=== PATIENT | female | born 1950 ===

== ENCOUNTER 2018-07-24 14:11 | Emergency (ER) | payer OTHER ==
[2018-07-24 14:47] VITALS: O2SAT 98
[2018-07-24] MEDS ORDERED: Sodium Chloride 0.9% 1,000 ML IV ONE (16:45)
[2018-07-24] MEDS ORDERED: Sodium Chloride 0.9% 1,000 ML ONE (16:53)
[2018-07-24 16:56] LABS: BASO % 0.2 % (0.0-2.0); HEMOGLOBIN 15.8 g/dL (11.0-16.0); LYMPH # 0.6 K/uL (1.0-4.3); LYMPH % 4.3 % (20.0-40.0); MEAN CELL VOLUME 96.8 fL (81.0-99.0); MEAN PLATELET VOLUME 9.4 fL (7.2-11.7); MONO # 0.3 K/uL (0.0-0.8); MONO % 2.3 % (0.0-10.0); NEUT # 12.8 K/uL (1.8-7.0); NEUT % 93.2 % (50.0-75.0); PLATELET COUNT 217 K/uL (130-400); RBC 4.95 Mil/uL (3.80-5.20); RED CELL DISTRIBUTION WIDTH 13.8 % (11.5-14.5); WHITE BLOOD COUNT 13.7 K/uL (4.8-10.8)
[2018-07-24 17:05] LABS: SQUAMOUS EPITHIAL 6 /hpf (0-5); URINE BILIRUBIN NEGATIVE (NEGATIVE); URINE BLOOD NEGATIVE (NEGATIVE); URINE CLARITY Hazy (Clear); URINE COLOR Yellow (YELLOW); URINE GLUCOSE (UA) NORMAL (Normal); URINE LEUKOCYTE ESTERASE 2+ Leu/uL (Negative); URINE PROTEIN NEGATIVE (NEGATIVE); URINE UROBILINOGEN NORMAL mg/dL (0.2-1.0)
--- NOTE | 2018-07-24 17:06 | C.PDOC ---
History Of Present Illness Patient is a 68 year old female who presents to the ED for evaluation diffuse abdominal pain for 1 day. Patient notes associated nausea, vomiting x3 since morning, and diarrhea x10. Patient denies any fever, chills, headache, or cons tipation. Patient also says she has had no sick contacts and has not been able to tolerate any PO intake. Time Seen by Provider: 07/24/18 16:25 Chief Complaint (Nursing): Abdominal Pain History Per: Patient History/Exam Limitations: no limitations Onset/Duration Of Symptoms: Hrs (nausea, vomiting, diarrhea), Days (1 day: abdominal pain) Current Symptoms Are (Timing): Still Present Associated Symptoms: Nausea, Vomiting, Diarrhea. denies: Fever, Chills, Constipation Recent travel outside of the [place]: No Additional History Per: Patient Past Medical History Reviewed: Historical Data, Nursing Documentation, Vital Signs Vital Signs: Last Vital Signs Temp 98.8 F 07/24/18 14:44 Pulse 88 07/24/18 14:44 Resp 18 07/24/18 14:44 BP 129/74 07/24/18 14:44 Pulse Ox 98 07/24/18 14:44 - Medical History PMH: HTN Surgical History: Cholecystectomy Family History: States: Unknown Family Hx - Social History Hx Alcohol Use: No Hx Substance Use: No - Immunization History Hx Tetanus Toxoid Vaccination: No Hx Influenza Vaccination: No Hx Pneumococcal Vaccination: No Review Of Systems Constitutional: Negative for: Fever, Chills Cardiovascular: Negative for: Chest Pain Respiratory: Negative for: Shortness of Breath Gastrointestinal: Positive for: Nausea, Vomiting (x3), Abdominal Pain, Diarrhea (x10). Negative for: Constipation Physical Exam - Physical Exam Appears: Non-toxic, In Acute Distress (mild) Skin: Normal Color, Warm, Dry Head: Atraumatic, Normacephalic Eye(s): bilateral: Normal Inspection Oral Mucosa: Moist Neck: Normal ROM, Supple Chest: Symmetrical Cardiovascular: Rhythm Regular Respiratory: Normal Breath Sounds, No Rales, No Rhonchi, No Wheezing Gastrointestinal/Abdominal: Tenderness (mild diffuse) Extremity: Normal ROM Neurological/Psych: Oriented x3 ED Course And Treatment - Laboratory Results Result Diagrams: 07/24/18 16:50 07/24/18 16:50 O2 Sat by Pulse Oximetry: 98 (on RA) Pulse Ox Interpretation: Normal - CT Scan/US CT ABD/PELVIS Other Rad Studies (CT/US): Read By Radiologist, Radiology Report Reviewed CT/US Interpretation: Name:LIZETH CARRILLO Exam Date:Jul 24, 2018 5:38:58 PM EST. Modality Type:CT\SR. Description:CT - ABDOMEN AND PELVIS. Gender:F Laterality:Not applicable. :52 Referring Physician:TRESA WARREN MD EXAM: CT Abdomen with IV contrast. CLINICAL HISTORY: Abd pain. TECHNIQUE: Axial computed tomography images of the abdomen and pelvis with intravenous contrast. 0.00 mGy-cm. CONTRAST: With; 100MLS VISI 320. COMPARISON: None provided. FINDINGS: LUNG BASES: The lung bases appear clear. No pleural effusions are seen. LIVER: Unremarkable. GALLBLADDER AND BILE DUCTS: The gallbladder has been surgically removed. PANCREAS: Unremarkable. SPLEEN: Unremarkable. ADRENAL GLANDS: Unremarkable. KIDNEYS, URETERS, AND BLADDER: The kidneys appear within normal limits. There is no hydronephrosis or hydroureter. No urinary calculi are seen. Minimal cystic changes are seen at the right adnexal region the pelvis. STOMACH AND BOWEL: Small rounded radiopaque density within the distal portion of the stomach is likely represent ingested material. There are fluid-filled mildly distended loops of small bowel extending into the pelvis with partial small bowel obstruction a consideration. APPENDIX: No evidence of acute appendicitis on CT examination. PERITONEUM: No free fluid. No free air. LYMPH NODES: No lymphadenopathy is evident. VASCULATURE: No evidence of abdominal aortic aneurysm. BONES: No aggressive appearing osseous lesion. No acute osseous pathology evident. IMPRESSION: Status post cholecystectomy. Fluid-filled mildly distended loops of small bowel present throughout the abdomen and into the pelvis with partial small bowel obstruction a consideration. Mild cystic changes right adnexal region of the pelvis. Close clinical correlation is advised. . Electronically signed on Jul 24, 2018 6:28:14 PM EST by: Aroldo Yanes M.D., Certified by [facility], Diagnostic Radiology Medical Decision Making Medical Decision Making: Patient is a 68 year old female who presents to the ED complaning of abdominal pain with associated nausea, vomiting and diarrhea. Plan: * Urinalysis * Bloodwork * CAT A/P * Toradol 30 mg IVP * Zofran 4 mg IVP * IV Fluids CT findings reviewed, discussed with patient. Patient states that she feels fine and is asking to go home. Explained that we will consult surgery due to possible small bowel obstruction on CT. Case discussed with surgery resident, will see patient. 2053- Surgery resident saw patient and discussed case with Dr. Thompson. Can d/c with cipro and flagyl. Rx written for cipro/flagyl. Cipro will also cover for UTI. Disposition - Disposition Disposition: HOME/ ROUTINE Disposition Time: 21:07 Condition: STABLE Additional Instructions: LIZETH CARRILLO, thank you for letting us take care of you today. Your provider was Tresa Warren MD and you were treated for STOMACH PAIN. The emergency medical care you received today was directed at your acute symptoms. If you were prescribed any medication, please fill it and take as directed. It may take several days for your symptoms to resolve. Return to the Emergency Department if your symptoms worsen, do not improve, or if you have any other problems. Please contact your doctor or call one of the physicians/clinics you have been referred to that are listed on the Patient Visit Information form that is included in your discharge packet. Bring any paperwork you were given at discharge with you along with any medications you are taking to your follow up visit. Our treatment cannot replace ongoing medical care by a primary care provider outside of the emergency department. Thank you for allowing the [facility] team to be part of your care today. If you had an X-Ray or CT scan: A Radiologist will review the ED reading if any change in treatment is needed we will contact you. If you had a blood, urine, or wound culture: It will take several days for the results, if any change in treatment is needed we will contact you. If you had an STI test: It will take 48 hours for the results. Please call after 1 week if you have not heard back. Prescriptions: RX: Ciprofloxacin [Cipro] 500 mg PO BID #14 tab Metronidazole [Flagyl] 500 mg PO TID #21 tablet Instructions: Urinary Tract Infection, Adult (DC), Colitis (DC) Forms: [email or web address] (German) Print Language: IRISH - Clinical Impression Clinical Impression: Colitis, Urinary tract infection - Scribe Statement The provider has reviewed the documentation as recorded by the Kye Goff All medical record entries made by the Kye were at my direction and personally dictated by me. I have reviewed the chart and agree that the record accurately reflects my personal performance of the history, physical exam, medical decision making, and the department course for this patient. I have also personally directed, reviewed, and agree with the discharge instructions and disposition.
[2018-07-24 17:11] LABS: ALB/GLOB RATIO 1.2 (1.0-2.1); ALBUMIN 4.8 g/dL (3.5-5.0); ALT/SGPT 26 U/L (9-52); AST/SGOT 27 U/L (14-36); BLOOD UREA NITROGEN 21 mg/dL (7-17); CALCIUM 9.2 mg/dl (8.6-10.4); GFR NON-AFRICAN AMERICAN > 60
[2018-07-24] MEDS ORDERED: Iodixanol 320 MG/ML 100 ML BOTTLE IV ONE (17:28)
[2018-07-24 17:43] LABS: BANDS 2 % (0-2); LYMPHOCYTE 3 % (20-40); MONOCYTE 4 % (0-10); NEUTROPHIL 91 % (50-75); PLATELET ESTIMATE NORMAL (NORMAL); TOTAL CELLS COUNTED 100
[2018-07-24 19:19] VITALS: RESP 16
--- NOTE | 2018-07-24 21:10 | CP.PCM.CON ---
History of Present Illness - History of Present Illness History of Present Illness: Surgery Consult Note. Dr Thompson 68yo F with PMHx of HTN here for evaluation of diffuse abdominal pain. Patient states that the pain started this morning, diffuse in nature. States that it was associated with nausea and vomiting x3 episodes, last episode at 1PM today, non- bloodly, non-bilious. Also reports 10x episodes of diarrhea today and states the last episode in ED was loose but more formed compared to earlier today. Patient denies any fevers or chills. States that all of her symptoms have resolved now and would like to be discharged home. Denies any chest pain, SOB. No urinary complaints. Seen ambulating freely without any complaints. PMHx: HTN PSHx: Abdominoplasty, Lap Cholecystectomy Family Hx: Non-contributory Social Hx: Denies Tobacco use, Denies ETOH use, Denies illicit drugs NKDA Review of Systems - Review of Systems All systems: reviewed and no additional remarkable complaints except - Constitutional Constitutional: absent: Chills, Fever - EENT Eyes: absent: Blurred Vision, Change in Vision Ears: absent: Decreased Hearing, Ear Discharge - Cardiovascular Cardiovascular: absent: Chest Pain, Diaphoresis, Dyspnea - Respiratory Respiratory: absent: Cough, Dyspnea - Gastrointestinal Gastrointestinal: Abdominal Pain, Diarrhea, Nausea, Vomiting. absent: Belching, Bloating, Hematemesis, Hematochezia, Melena - Genitourinary Genitourinary: absent: Difficulty Urinating, Dysuria Past Patient History - Past Medical History & Family History Past Medical History?: Yes Past Family History: Reviewed and not pertinent - Past Social History Smoking Status: Never Smoked Alcohol: None Drugs: Denies - CARDIAC Hx Hypertension: Yes - PSYCHIATRIC Hx Substance Use: No - SURGICAL HISTORY Hx Cholecystectomy: Yes Meds Home Medications: Home Medication List Medication Instructions Recorded Confirmed Type Ciprofloxacin [Cipro] 500 mg PO BID #14 tab 07/24/18 Rx Metronidazole [Flagyl] 500 mg PO TID #21 tablet 07/24/18 Rx Allergies/Adverse Reactions: Allergies Allergy/AdvReac Type Severity Reaction Status Date / Time No Known Allergies Allergy Verified 07/24/18 14:46 Physical Exam - Constitutional Appears: Well, Non-toxic, No Acute Distress - Head Exam Head Exam: ATRAUMATIC, NORMAL INSPECTION, NORMOCEPHALIC - Eye Exam Eye Exam: EOMI, Normal appearance. absent: Scleral icterus - ENT Exam ENT Exam: Mucous Membranes Moist, Normal Exam - Neck Exam Neck exam: Positive for: Normal Inspection - Respiratory Exam Respiratory Exam: NORMAL BREATHING PATTERN. absent: Accessory Muscle Use, Respiratory Distress - Cardiovascular Exam Cardiovascular Exam: RRR. absent: JVD - GI/Abdominal Exam GI & Abdominal Exam: Soft. absent: Distended, Firm, Guarding, Rebound, Rigid, Tenderness - Extremities Exam Extremities exam: Positive for: normal inspection. Negative for: calf tenderness - Back Exam Back exam: NORMAL INSPECTION - Neurological Exam Neurological exam: Alert, Normal Gait, Oriented x3 - Psychiatric Exam Psychiatric exam: Normal Affect, Normal Mood - Skin Skin Exam: Dry, Intact, Normal Color, Warm Results - Vital Signs Recent Vital Signs: Last Vital Signs Temp 98.1 F 07/24/18 19:19 Pulse 84 07/24/18 19:19 Resp 16 07/24/18 19:19 BP 120/75 07/24/18 19:19 Pulse Ox 98 07/24/18 20:54 - Labs Result Diagrams: 07/24/18 16:50 07/24/18 16:50 Labs: Laboratory Results - last 24 hr 07/24/18 07/24/18 07/24/18 16:50 16:50 16:50 WBC 13.7 H RBC 4.95 Hgb 15.8 Hct 47.9 H MCV 96.8 MCH 32.0 H MCHC 33.0 RDW 13.8 Plt Count 217 MPV 9.4 Neut % (Auto) 93.2 H Lymph % (Auto) 4.3 L [place] % (Auto) 2.3 Eos % (Auto) 0.0 Baso % (Auto) 0.2 Neut # (Auto) 12.8 H Lymph # (Auto) 0.6 L [place] # (Auto) 0.3 Eos # (Auto) 0.0 Baso # (Auto) 0.0 Neutrophils % (Manual) 91 H Band Neutrophils % 2 Lymphocytes % (Manual) 3 L Monocytes % (Manual) 4 Platelet Estimate Normal Sodium 141 Potassium 3.7 Chloride 105 Carbon Dioxide 23 Anion Gap 16 BUN 21 H Creatinine 0.8 Est GFR ( Amer) > 60 Est GFR (Non-Af Amer) > 60 Random Glucose 132 H Calcium 9.2 Total Bilirubin 0.6 AST 27 ALT 26 Alkaline Phosphatase 131 H Total Protein 8.7 H Albumin 4.8 Globulin 3.9 Albumin/Globulin Ratio 1.2 Urine Color Yellow Urine Clarity Hazy Urine pH 5.0 Ur Specific [place] 1.026 Urine Protein Negative Urine Glucose (UA) Normal Urine Ketones Negative Urine Blood Negative Urine Nitrate Negative Urine Bilirubin Negative Urine Urobilinogen Normal Ur Leukocyte Esterase 2+ H Urine WBC (Auto) 15 H Urine RBC (Auto) 2 Ur Squamous Epith Cells 6 H Assessment & Plan - Assessment and Plan (Free Text) Assessment: 68yo F with abdominal pain (resolved) CT scan with concerns for partial SBO. Low suspicion. Likely resolving gastroenteritis Plan: - No surgical intervention warranted at this time. - Okay to discharge home with PO Abx: Cipro/Flagyl - Return to the ER with any concerning symptoms. Discussed with patient at length, who understands and agrees with plan Further recs as per Dr. Donna Warner PGY2 Surgery
[2018-07-24 21:33] VITALS: BP 116/78; PULSE 80; TEMP 98.4
--- NOTE | 2018-07-25 12:38 | CT ---
Date of service: 07/24/2018 PROCEDURE: CT Abdomen and Pelvis with contrast HISTORY: abdominal pain COMPARISON: None available TECHNIQUE: Contrast dose: 100 mL Visipaque 320 IV Radiation dose: Total exam DLP = 959.25 mGy-cm. This CT exam was performed using one or more of the following dose reduction techniques: Automated exposure control, adjustment of the mA and/or kV according to patient size, and/or use of iterative reconstruction technique. FINDINGS: LOWER THORAX: No visible consolidation, pleural effusion, or pneumothorax. LIVER: Hypoattenuation of the liver compatible with hepatic steatosis. GALLBLADDER AND BILE DUCTS: Cholecystectomy. PANCREAS: Unremarkable. SPLEEN: Unremarkable. ADRENALS: Unremarkable. KIDNEYS AND URETERS: The kidneys enhance symmetrically. No hydronephrosis or obstructing calculus identified. VASCULATURE: No aortic aneurysm. Atherosclerotic calcifications/mural plaque present. 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 BOWEL: Stomach is nondistended. Lack of oral contrast limits evaluation for bowel pathology. Bowel loops appear within normal limits of caliber without evidence of obstruction. Nonspecific mildly dilated loops of fluid-filled small bowel; correlate for possibility of intermittent or partial obstruction. APPENDIX: The appendix appears within normal limits of caliber. No secondary signs of acute appendicitis. PERITONEUM: No significant free fluid. No definite free air. LYMPH NODES: No bulky adenopathy identified. BLADDER: Unremarkable. REPRODUCTIVE: Uterus is present. 2.9 cm right adnexal cyst, likely ovarian. BONES: No acute osseous abnormality is detected. OTHER FINDINGS: None. IMPRESSION: Nonspecific mildly dilated loops of fluid-filled small bowel; correlate for possibility of partial or intermittent obstruction. 2.9 cm right adnexal cyst, likely ovarian. Hypoattenuation of the liver compatible with hepatic steatosis. Cholecystectomy. 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 Additional incidental findings as above. Preliminary impression was provided by [email or web address]. Study marked for PA review.
== END 2018-07-24 21:33 | disposition home or self-care (01) ==
LOC: C.ER 14:11
DX: K52.9 Noninfective gastroenteritis and colitis, unspecified (principal); N39.0 Urinary tract infection, site not specified; I10 Essential (primary) hypertension
CPT/HCPCS: 74177; 80053; 81001; 85025; 96361; 96374; 96375; 99285; J1885; J2405; J7030; Q9967